=== PATIENT | female | born 1990 ===

== ENCOUNTER 2017-11-05 13:44 | Emergency (ER) | payer OTHER ==
[2017-11-05 13:56] VITALS: BP 134/79
--- NOTE | 2017-11-05 15:15 | UC ---
Abdominal Pain Female HPI - HPI Summary HPI Summary: Pleasant 27 yo female presents with mom c/o episode of severe midepigastric / RUQ abd pain last night. Now not bad, describes as "sore." Sx occurred last night shortly after eating a bagel with cream cheese. Sx progressed for approx 3 hrs prior to relenting. Still feels abd "swollen" and painful. Pain radiated to back. ok now. + gassy at the time. + nausea mild no vomit. BM's brownish, no melena / brbpr. No d/c. No urinary sx. LMP early Oct, regular. Had episode of pain in similar location approx 2 yrs ago, but reports that it turned out she was . No cough / cold. No fever / chills. Appetite poor today. Last po water (in room), last food bran cereal with skim milk in am. No rash. + sinus drip / mild congestion. + tobacco occasional. + asthma "when sick." Sign PSH - Gastric bypass [place] approx [address] abd / pelv 2015 ( [facility]). 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 Hx Last Menstrual Period: 10/26/17 Pain Intensity: 0 Allergies/Adverse Reactions: Allergies Allergy/AdvReac Type Severity Reaction Status Date / Time No Known Allergies Allergy Verified 11/05/17 13:48 Home Medications: Home Medications Control 1 tab PO DAILY 11/05/17 [History Confirmed 11/05/17] PMH/Surg Hx/FS Hx/Imm Hx Previously Healthy: Yes - see hpi - Surgical History Surgical History: Yes Surgery Procedure, Year, and Place: gastric by-pass 2009 [place] - Social History Alcohol Use: Occasionally Substance Use Type: None Smoking Status (MU): Never Smoked Tobacco Review of Systems Constitutional: Negative Skin: Negative Eyes: Negative ENT: Other - see hpi Respiratory: Negative Cardiovascular: Negative Gastrointestinal: Other - see hpi Genitourinary: Other - see hpi Motor: Negative Neurovascular: Negative Musculoskeletal: Negative Neurological: Negative Psychological: Negative Is Patient Immunocompromised?: No All Other Systems Reviewed And Are Negative: Yes Physical Exam Triage Information Reviewed: Yes Appearance: Well-Nourished - sitting up, looks tired but nad Vital Signs: Initial Vital Signs Temp 97.7 F 11/05/17 13:49 Pulse 90 11/05/17 13:49 Resp 18 11/05/17 13:49 BP 134/79 11/05/17 13:49 Pulse Ox 100 11/05/17 13:49 Vital Signs Reviewed: Yes Eye Exam: Normal ENT: Positive: Other - post pharynx mild redness, no purulence, no sores. uvula midline. TM's benign. Neck supple without appreciable adenopathy Neck exam: Normal Neck: Positive: Supple, Nontender, No Lymphadenopathy Respiratory Exam: Other - faint exp wheeze R>L base o/w NAD Cardiovascular Exam: Normal Cardiovascular: Positive: RRR, No Murmur, Pulses Normal, Brisk Capillary Refill Abdominal Exam: Other - Mild tender RUQ and midepig. Without rebound nor guarding. Soft, nd. No cvat Musculoskeletal Exam: Normal - mild ble edema c/w chronic venous insuff Neurological Exam: Normal - grossly nonfocal Psychological Exam: Normal - conversing easily and appropriately Abd Pain Female Course/Dx - Course Course Of Treatment: U/S RUQ ordered - reviewed results with pt and mom. + cholelithiasis, without evidnec of biliary duct dilitation. Urine dip / ucg reviewed. No new problems reported in [facility]. Reviewed with pt that hx gastric bypass complicates anatomy and potential pain c/o's, as such any worse or new pain -> go to the Emergency Department. Will check blood work. Pt will f/u with PCP in [place] tomorrow. D/w pt avoid fatty foods, careful po. Questions as posed answered to the best of my ability. - Differential Dx/Diagnosis Provider Diagnoses: RUQ abd pain with gallstones. See MDM. Discharge - Sign-Out/Discharge Documenting (check all that apply): Patient Departure All imaging exams completed and their final reports reviewed: Yes - Discharge Plan Condition: Stable Disposition: HOME Patient Education Materials: Gallstones (ED), Biliary Colic (ED) Referrals: No Primary Care Phys,NOPCP [Primary Care Provider] - Additional Instructions: Follow up with your primary care physician in [place] - tomorrow. Blood work ordered today. Ultrasound today -> + gallstones, no evidence of biliary duct dilatation. Please go to the Emergency Department for ANY problems, worse or new symptoms. - Billing Disposition and Condition Condition: STABLE Disposition: Home
--- NOTE | 2017-11-05 15:57 | RAD ---
Indication: Right upper quadrant pain. Real-time sonography of the right upper quadrant was performed. The liver is normal in size. No focal lesions or intrahepatic ductal dilatation is noted. The gallbladder demonstrates multiple echogenic foci with posterior acoustic shadowing consistent with cholelithiasis. Common duct measures up to 0.4 cm. Right kidney measures 10.8 x 4.1 x 4.1 cm with no hydronephrosis. The pancreas demonstrates no mass or pancreatic duct dilatation. Aorta and inferior vena cava are unremarkable. IMPRESSION: Cholelithiasis without evidence of biliary duct dilatation.
[2017-11-05 19:37] LABS: ABS Basophils 0 10^3/ul (0-0.2); ABS Eosinophils 0.1 10^3/ul (0-0.6); ABS Lymphocytes 0.8 10^3/ul (1.0-4.8); ABS Monocytes 0.3 10^3/ul (0-0.8); ABS Neutrophils 3.6 10^3/ul (1.5-7.7); ABS Nucleated RBC 0 10^3/ul; Eosinophil % 1.6 % (0-6); Hematocrit 40 % (35-47); Hemoglobin 13.4 g/dl (12.0-16.0); Lymphocyte % 16.7 % (25-47); Mean Corpuscular HGB Conc 33 g/dl (31-36); Mean Corpuscular Hemoglobin 28 pg (27-31); Mean Corpuscular Volume 82 fL (80-97); Mean Platelet Volume 8.5 um3 (7.4-10.4); Nucleated Red Blood Cells % 0.1; Platelet Count 222 10^3/ul (150-450); Red Blood Count 4.88 10^6/ul (4.00-5.40); Red Cell Distribution Width 14 % (10.5-15)
[2017-11-06 11:35] LABS: EGFR Non-African American 120.8 (>60)
--- NOTE | 2017-11-06 17:07 | UC ---
- Progress Note Progress Note: Labs with mildly elevated liver enzymes and lipase, possibly due to her cholelithiasis. Her US yesterday did NOT reveal any obstruction. She was advised to have a f/u with her PCP today. Please call and make sure she was able to have follow up this week - if worsening symptoms needs to go to ED Discharge - Sign-Out/Discharge Documenting (check all that apply): Post-Discharge Follow Up All imaging exams completed and their final reports reviewed: Yes - Discharge Plan Condition: Stable Disposition: HOME Patient Education Materials: Biliary Colic (ED), Gallstones (ED) Referrals: No Primary Care Phys,NOPCP [Primary Care Provider] - Additional Instructions: Follow up with your primary care physician in [place] - tomorrow. Blood work ordered today. Ultrasound today -> + gallstones, no evidence of biliary duct dilatation. Please go to the Emergency Department for ANY problems, worse or new symptoms. - Billing Disposition and Condition Condition: STABLE Disposition: Home
== END 2017-11-05 16:37 | disposition home or self-care (01) ==
LOC: UCEAST 13:44
DX: K80.20 Calculus of gallbladder without cholecystitis without obstruction (principal); R10.11 Right upper quadrant pain; Z98.84 Bariatric surgery status
CPT/HCPCS: 36415; 76705; 80053; 81003; 83690; 84702; 85025; 86140; 87086; 99211; G0463

== ENCOUNTER 2018-09-24 13:18 | Emergency (ER) | payer OTHER ==
--- NOTE | 2018-09-24 14:27 | ED ---
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 Pt states she went to urgent care for her rectal pain and the doctor there told her to come to [facility]. Pt previously had a perirectal abscess 6 years ago and had surgery to drain it. She notes that for her first perirectal abscess, the pain slowly progressed and eventually became severe. However, this time she notes that the pain immediately became severe. She says she will see a general surgeon tomorrow in [place] for the abscess. The patient rates the pain 8/10 in severity. Symptoms aggravated by nothing. Symptoms alleviated by nothing. Pt reports feeling warm, nausea, and pain at the left side of buttocks. Pt denies ABD pain, vomiting, diarrhea. - History of Current Complaint Chief Complaint: EDRashSkinAbscess Time Seen by Provider: 09/24/18 14:03 Stated Complaint: ABCESS Hx Obtained From: Patient Hx Last Menstrual Period: 10/26/17 Onset/Duration: Started Days Ago Timing: Constant Onset Severity: Severe Current Severity: Severe Pain Intensity: 8 Pain Scale Used: 0-10 Numeric Skin Location: Other: - left buttocks Character: Pain Aggravating Symptom(s): Nothing Alleviating Symptom(s): Nothing Associated Signs & Symptoms: Nausea, Tenderness - at left buttocks - Allergy/Home Medications Allergies/Adverse Reactions: Allergies Allergy/AdvReac Type Severity Reaction Status Date / Time No Known Allergies Allergy Verified 09/24/18 13:28 Home Medications: Home Medications Amoxicillin/Clavulanate TAB* [Augmentin TAB 875*] 1 tab PO BID 09/24/18 [ History Confirmed 09/24/18] Bupropion XL* [Wellbutrin XL *] 150 mg PO DAILY 09/24/18 [History Confirmed ] PMH/Surg Hx/FS Hx/Imm Hx Previously Healthy: No Endocrine/Hematology History: Denies: Hx Diabetes, Hx Thyroid Disease Cardiovascular History: Denies: Hx Congestive Heart Failure, Hx Hypertension Respiratory History: Reports: Hx Asthma Denies: Hx Chronic Obstructive Pulmonary Disease (COPD) GI History: Denies: Hx Ulcer History: Denies: Hx Dialysis, Hx Renal Disease - Surgical History Surgical History: Yes Surgery Procedure, Year, and Place: gastric by-pass 2010 [place] Infectious Disease History: No Infectious Disease History: Denies: Hx Hepatitis, Hx Human Immunodeficiency Virus (HIV), Traveled Outside the [place] in Last 30 Days - Family History Known Family History: Positive: Hypertension, Diabetes - Social History Alcohol Use: Occasionally Hx Substance Use: No Substance Use Type: Reports: None Hx Tobacco Use: No Smoking Status (MU): Never Smoked Tobacco Do You Chew or Dip Tobacco: No Have You Chewed or Dipped Tobacco in the LAST YEAR: No Have You Smoked in the Last Year: No Review of Systems Constitutional: Other - positive - pt feels warm Positive: Nausea. Negative: Abdominal Pain, Vomiting, Diarrhea Genitourinary: Other - positive - perirectal abscess Musculoskeletal: Other - positive - pain at the left side of buttocks All Other Systems Reviewed And Are Negative: Yes Physical Exam - Summary Physical Exam Summary: Constitutional: Well-developed, Well-nourished, Alert. (-) Distressed Skin: Warm, Dry HENT: Normocephalic; Atraumatic Eyes: Conjunctiva normal Neck: Musculoskeletal ROM normal neck. (-) JVD, (-) Stridor, (-) Nuchal rigidity Cardio: Rhythm regular, rate normal, Heart sounds normal; Intact distal pulses; Radial pulses are 2+ and symmetric. (-) Murmur Pulmonary/Chest wall: Effort normal. (-) Respiratory distress, (-) Wheezes, (-) Rales Abd: Soft, (-) tenderness, (-) Distension, (-) Guarding, (-) Rebound Musculoskeletal: (-) Edema Rectal: tenderness with mild erythema of the left inner gluteal clef near her old incision site. No fluctuance noted Lymph: (-) Cervical adenopathy Neuro: Alert, Oriented x3 Psych: Mood and affect Normal Triage Information Reviewed: Yes Vital Signs On Initial Exam: Initial Vitals Temp Pulse Resp BP Pulse Ox 98.7 F 82 16 129/82 100 09/24/18 13:23 09/24/18 13:23 09/24/18 13:23 09/24/18 13:23 09/24/18 13:23 Vital Signs Reviewed: Yes Diagnostics - Vital Signs Vital Signs Temp Pulse Resp BP Pulse Ox 09/24/18 13:23 98.7 F 82 16 129/82 100 - Laboratory Result Diagrams: 09/24/18 14:58 09/24/18 14:58 Lab Statement: Any lab studies that have been ordered have been reviewed, and results considered in the medical decision making process. Re-Evaluation - Re-Evaluation First Eval Change: Improved - She feels better after medication, no evidence of infection on labs. Patient going to follow up with her surgeon tomorrow. Given pain control Course/Dx - Course Course Of Treatment: 28-year-old female with a history of a left-sided perirectal abscess 6 years ago presents with rectal pain. Well-appearing on exam, mild tenderness without fluctuance to the left gluteal fold near old scar incision site. Check basic labs. Has a surgical appointment tomorrow - Diagnoses Provider Diagnoses: Perirectal abscess, Rectal pain - Physician Notifications Discussed Care Of Patient With: Basil Tejada Time Discussed With Above Provider: 14:33 Instructed by Provider To: Other - Dr. Moise discusses pt's case with Dr. Tejada, surgery. Dr. Tejada reccomends pt get a CT scan. Discharge - Sign-Out/Discharge Documenting (check all that apply): Patient Departure - discharge Patient Received Moderate/Deep Sedation with Procedure: No - Discharge Plan Condition: Stable Disposition: HOME Prescriptions: Docusate CAP* [Colace Cap*] 100 mg PO BID 30 Days #60 cap oxyCODONE/Acetamin 5/325 MG* [Percocet 5/325 TAB*] 1 tab PO Q6H PRN 2 Days #8 tab MDD 4 PRN Reason: Pain Patient Education Materials: Abscess (ED), Rectal Pain (ED) Referrals: No Primary Care Phys,NOPCP [Primary Care Provider] - Basil Tejada MD [Medical Doctor] - 1 Day Additional Instructions: You were seen in the emergency department for pain likely secondary to a perirectal abscess. Your labs do not show evidence of infection. Please follow-up with your surgeon tomorrow or feel free to follow up with our general surgeon here. If any studies were not completed at the time of discharge you will be called with the relevant results. Please follow up with Dr. Tejada, surgery, within 1 day. Please follow up with your primary care doctor in next 2-3 days and return to emergency department for worsening , fevers, or concerning symptoms. - Billing Disposition and Condition Condition: STABLE Disposition: Home - Attestation Statements Document Initiated by Scribe: Yes Documenting Scribe: Davon Smith Provider For Whom Pierre is Documenting (Include Credential): Dr. Geneva Moise MD Scribe Attestation: I, Davon Bowen and Prateek Smith, scribed for Dr. Geneva Moise MD on 09/24 at 1621. Scribe Documentation Reviewed: Yes Provider Attestation: The documentation as recorded by the scribe, Davon Smith accurately reflects the service I personally performed and the decisions made by me, Dr. Geneva Moise MD Status of Scribe Document: Viewed
[2018-09-24] MEDS ORDERED: Morphine 4 MG/ML VIAL (1 ml) 4 MG/ML VIAL IV ONE (14:46)
[2018-09-24 15:12] LABS: ABS Basophils 0.1 10^3/ul (0-0.2); ABS Eosinophils 0.1 10^3/ul (0-0.6); ABS Lymphocytes 0.8 10^3/ul (1.0-4.8); ABS Monocytes 0.8 10^3/ul (0-0.8); ABS Neutrophils 7.7 10^3/ul (1.5-7.7); Hematocrit 39 % (35-47); Hemoglobin 12.9 g/dL (12.0-16.0); Lymphocyte % 8.8 %; Mean Corpuscular HGB Conc 33 g/dL (31-36); Mean Corpuscular Hemoglobin 26 pg (27-31); Mean Corpuscular Volume 78 fL (80-97); Mean Platelet Volume 8.2 fL (7.4-10.4); Platelet Count 203 10^3/uL (150-450); Red Blood Count 5.03 10^6 /uL (3.70-4.87); Red Cell Distribution Width 16 % (10-15); White Blood Count 9.5 10^3/uL (3.5-10.8)
[2018-09-24 15:36] LABS: HCG Pregnancy < 0.60 mIU/mL
[2018-09-24 16:02] LABS: ALT 12 U/L (7-52); AST 16 U/L (13-39); Albumin 4.1 g/dL (3.2-5.2); Albumin/Globulin Ratio 1.4 (1-3); Alkaline Phosphatase 68 U/L (34-104); Anion Gap 11 mmol/L (2-11); BUN/Creatinine Ratio 13.1 (8-20); Blood Urea Nitrogen 8 mg/dL (6-24); CO2 Carbon Dioxide 21 mmol/L (22-32); Calcium 9.4 mg/dL (8.6-10.3); Chloride 107 mmol/L (101-111); EGFR African American 142.4 (>60); EGFR Non-African American 117.7 (>60); Globulin 2.9 g/dL (2-4); Glucose 92 mg/dL (70-100); Potassium 3.9 mmol/L (3.5-5.0); Sodium 139 mmol/L (135-145)
[2018-09-24 16:15] VITALS: BP 118/78
== END 2018-09-24 16:14 | disposition home or self-care (01) ==
LOC: ED 13:18
DX: K61.1 Rectal abscess (principal); Z79.899 Other long term (current) drug therapy
CPT/HCPCS: 36415; 80053; 84702; 85025; 96374; 99282; J2270